=== PATIENT | female | born 1940 | race African-American/Black ===

== ENCOUNTER 2022-01-10 15:05 | Observation (INO) | payer OTHER ==
[2022-01-10] MEDS ORDERED: FAMOTIDINE 20 MG/50 ML IVPB 20 MG/50 ML MG IVPB ONE ×2 (18:20→19:01)
[2022-01-10] MEDS ORDERED: MAG HYDROX/AL HYDROX/SIMETH 30 ML UNIT-DOSE CUP PO ONE (18:20)
[2022-01-10] MEDS ORDERED: SODIUM CHLORIDE 1,000 ML IV STA (18:21)
[2022-01-10] MEDS ORDERED: MAG HYDROX/AL HYDROX/SIMETH 30 ML UNIT-DOSE CUP ONE (19:01)
[2022-01-10 20:05] LABS: BASO % 0.7 % (0-2.0); EOS % 1.1 % (0-4.5); HEMATOCRIT 40.2 % (32.4-45.2); LYMPH % 30.2 % (8-40); MCH 28.3 pg (25.7-33.7); MCHC 32.3 g/dl (32.0-36.0); MEAN CELL VOLUME 87.6 fl (80-96); MEAN PLT VOLUME 10.8 fl (7.5-11.1); MONO % 6.6 % (3.8-10.2); NEUT % 61.4 % (42.8-82.8); PLATELET COUNT 248 10^3/uL (134-434); RBC 4.59 M/mm3 (3.60-5.2); RDW 13.9 % (11.6-15.6); WHITE BLOOD COUNT 6.1 K/mm3 (4.0-10.0)
[2022-01-10 20:22] LABS: ALBUMIN 3.3 g/dl (3.4-5.0); CALCIUM 9.2 mg/dL (8.5-10.1); MAGNESIUM 1.6 mg/dL (1.8-2.4)
[2022-01-10 20:23] LABS: BLOOD UREA NITROGEN 9.8 mg/dL (7-18)
[2022-01-10 20:25] LABS: CREATININE 0.6 mg/dL (0.55-1.3)
[2022-01-10 20:27] LABS: BILIRUBIN,TOTAL 0.7 mg/dL (0.2-1); TOT PROT 7.5 g/dl (6.4-8.2)
[2022-01-10] MEDS ORDERED: DEXTROSE 50%-WATER - 25 GM/50 ML VIAL IVPUSH ONE (21:38)
[2022-01-10] MEDS ORDERED: DEXTROSE 50%-WATER 25 GM/50 ML DISP.SYRIN ONE (21:49)
[2022-01-11] MEDS ORDERED: MAGNESIUM SULFATE IN WATER 2 GM/50 ML IVPB IVPB ONE (02:57)
[2022-01-11] MEDS ORDERED: MAGNESIUM 2GM/50ML STERILE WATER IVPB IVPB ONE (03:00)
[2022-01-11] MEDS: DEXTROSE 5%-WATER - 1,000 ML IV SCH (03:13)
[2022-01-11 04:16] LABS: URINE APPEARANCE CLEAR; URINE BILIRUBIN NEGATIVE (NEGATIVE); URINE COLOR YELLOW; URINE GLUCOSE (UA) NEGATIVE (NEGATIVE); URINE KETONE TRACE (NEGATIVE); URINE LEUK ESTERASE NEGATIVE (NEGATIVE); URINE NITRITE NEGATIVE (NEGATIVE); URINE PROTEIN NEGATIVE (NEGATIVE); URINE UROBILINOGEN 0.2 mg/dL (0.2-1.0)
[2022-01-11 10:29] LABS: BASO % 0.5 % (0-2.0); EOS % 3.5 % (0-4.5); HEMATOCRIT 39.8 % (32.4-45.2); HEMOGLOBIN 12.9 GM/dL (10.7-15.3); LYMPH % 28.7 % (8-40); MCH 28.3 pg (25.7-33.7); MCHC 32.3 g/dl (32.0-36.0); MEAN CELL VOLUME 87.5 fl (80-96); MEAN PLT VOLUME 10.6 fl (7.5-11.1); NEUT % 59.3 % (42.8-82.8); PLATELET COUNT 240 10^3/uL (134-434); RBC 4.55 M/mm3 (3.60-5.2); RDW 13.5 % (11.6-15.6); WHITE BLOOD COUNT 6.1 K/mm3 (4.0-10.0)
[2022-01-11 11:13] LABS: CALCIUM 9.2 mg/dL (8.5-10.1)
[2022-01-11 11:14] LABS: ALBUMIN 3.3 g/dl (3.4-5.0); BLOOD UREA NITROGEN 6.1 mg/dL (7-18)
[2022-01-11 11:18] LABS: BILIRUBIN,TOTAL 0.3 mg/dL (0.2-1); CREATININE 0.6 mg/dL (0.55-1.3); TOT PROT 7.4 g/dl (6.4-8.2)
[2022-01-11] MEDS ORDERED: ONDANSETRON 8 MG TABLET (FP) PO PRN (18:22)
[2022-01-11] MEDS: PANTOPRAZOLE 20 MG TABLET PO SCH (21:03)
[2022-01-11] MEDS: MELATONIN 5 MG TABLETS PO PRN (21:03)
[2022-01-11] MEDS: ENALAPRIL MALEATE 5 MG TABLET PO SCH (21:04)
[2022-01-11] MEDS: INSULIN SLIDING SCALE (NOVOLOG) 1 VIAL SQ SCH (21:10)
[2022-01-11] MEDS: ASPIRIN 81 MG CHEWABLE TABLETS PO SCH (21:19)
[2022-01-11] MEDS: ATORVASTATIN CA 20 MG TABLET (FP) PO SCH (21:33)
[2022-01-11 23:34] VITALS: BMI 24.1
[2022-01-12] MEDS ORDERED: ONDANSETRON 4 MG TABLET PO PRN (00:20)
[2022-01-12 01:39] VITALS: RESP 18
[2022-01-12] MEDS: DEXTROSE 5%-WATER - 1,000 ML IV SCH (03:45)
[2022-01-12] MEDS: INSULIN SLIDING SCALE (NOVOLOG) 1 VIAL SQ SCH ×3 (06:25→16:26)
[2022-01-12] MEDS ORDERED: INSULIN (NOVOLOG) ASPART 100 UNITS/ML 10ML VIAL ONE (06:44)
[2022-01-12] MEDS: ASPIRIN 81 MG CHEWABLE TABLETS PO SCH (10:28)
[2022-01-12] MEDS: PANTOPRAZOLE 20 MG TABLET PO SCH (10:28)
[2022-01-12] MEDS: ENALAPRIL MALEATE 5 MG TABLET PO SCH (10:28)
[2022-01-12] MEDS: ONDANSETRON *ODT* 4 MG TABLET SL PRN ×2 (18:43→21:20)
[2022-01-12] MEDS: ATORVASTATIN CA 20 MG TABLET (FP) PO SCH (21:20)
[2022-01-12] MEDS: MELATONIN 5 MG TABLETS PO PRN (21:20)
[2022-01-13] MEDS: DEXTROSE 5%-WATER - 1,000 ML IV SCH (02:45)
[2022-01-13] MEDS: INSULIN SLIDING SCALE (NOVOLOG) 1 VIAL SQ SCH ×2 (06:25→11:24)
[2022-01-13] MEDS: PANTOPRAZOLE 20 MG TABLET PO SCH (10:03)
[2022-01-13] MEDS: ASPIRIN 81 MG CHEWABLE TABLETS PO SCH (10:03)
[2022-01-13] MEDS: ENALAPRIL MALEATE 5 MG TABLET PO SCH (10:03)
[2022-01-13 15:22] VITALS: BP 120/73; PULSE 69; TEMP 98.1
== END 2022-01-13 17:33 | disposition home or self-care (01) ==
LOC: JER 15:05 → JERBED 01-11 01:12 → J6S 01-11 20:17
PROVIDERS: ADMIT Internal Medicine; ATTEND Internal Medicine
PROC: 3E0337Z Introduction of Electrolytic and Water Balance Substance into Peripheral Vein, Percutaneous Approach (ICD-10-PCS; principal; 2022-01-11)
PROC: 3E033GC Introduction of Other Therapeutic Substance into Peripheral Vein, Percutaneous Approach (ICD-10-PCS; 2022-01-11)
PROC: 3E0337Z Introduction of Electrolytic and Water Balance Substance into Peripheral Vein, Percutaneous Approach (ICD-10-PCS; 2022-01-11)
DX: E16.2 Hypoglycemia, unspecified (principal); E86.0 Dehydration; G93.41 Metabolic encephalopathy; I10 Essential (primary) hypertension; Z20.822 Contact with and (suspected) exposure to COVID-19
CPT/HCPCS: 36415; 71045-TC-FY; 74177-TC; 80053; 81003; 82962; 83690; 83735; 84443; 84484; 85025; 87086; 93005; 93010; 96361; 96365; 96375; 97116-GP; 97161-GP; 99285-25; C9803-CS; G0378; Q0162; Q9967; U0003; U0005

== ENCOUNTER 2023-11-13 19:55 | Emergency (ER) | payer OTHER ==
[2023-11-13 19:58] VITALS: BP 132/69; PULSE 79; RESP 16; TEMP 97.8; BMI 21.6
[2023-11-13] MEDS ORDERED: ACETAMINOPHEN 325 MG TABLET (FP) ONE (22:02)
[2023-11-13 22:08] LABS: BASO % 0.5 % (0-2.0); EOS % 7.2 % (0-4.5); HEMATOCRIT 42.9 % (32.4-45.2); HEMOGLOBIN 13.8 GM/dL (10.7-15.3); LYMPH % 40.7 % (8-40); MCH 28.7 pg (25.7-33.7); MCHC 32.2 g/dl (32.0-36.0); MEAN CELL VOLUME 89.2 fl (80-96); MEAN PLT VOLUME 10.1 fl (7.5-11.1); MONO % 7.7 % (3.8-10.2); NEUT % 43.9 % (42.8-82.8); PLATELET COUNT 210 10^3/uL (134-434); RBC 4.81 M/mm3 (3.60-5.2); RDW 14.1 % (11.6-15.6); WHITE BLOOD COUNT 5.9 K/mm3 (4.0-10.0)
[2023-11-13] MEDS: ACETAMINOPHEN 325 MG TABLET (FP) PO ONE (22:10)
[2023-11-13 22:28] LABS: POTASSIUM 4.3 mmol/L (3.5-5.1)
[2023-11-13 22:30] LABS: CALCIUM 9.7 mg/dL (8.5-10.1)
[2023-11-13 22:31] LABS: ALBUMIN 3.6 g/dl (3.4-5.0); BLOOD UREA NITROGEN 10.2 mg/dL (7-18)
[2023-11-13 22:34] LABS: CREATININE 0.8 mg/dL (0.55-1.3)
[2023-11-13 22:35] LABS: BILIRUBIN,TOTAL 0.4 mg/dL (0.2-1); TOT PROT 8.4 g/dl (6.4-8.2)
[2023-11-13 22:58] LABS: EPI CELLS 6 /uL (0-25.1); HYALINE CASTS 0 /uL (0-3.1); URINE APPEARANCE CLEAR; URINE BACTERIA 164 /uL (0-1359); URINE BILIRUBIN NEGATIVE (NEGATIVE); URINE COLOR YELLOW; URINE GLUCOSE (UA) NEGATIVE (NEGATIVE); URINE KETONE NEGATIVE (NEGATIVE); URINE LEUK ESTERASE TRACE (NEGATIVE); URINE NITRITE NEGATIVE (NEGATIVE); URINE PROTEIN NEGATIVE (NEGATIVE); URINE RBC 15 /uL (0-23.9); URINE UROBILINOGEN 0.2 mg/dL (0.2-1.0); URINE WBC 16 /uL (0-25.8)
== END 2023-11-14 03:03 | disposition home or self-care (01) ==
LOC: JER 19:55
DX: M54.2 Cervicalgia (principal); R42 Dizziness and giddiness
CPT/HCPCS: 70450-TC; 70496-TC; 70498-TC; 80053; 81003; 82550; 84484; 85025; 93005; 93010; 99285-25